=== PATIENT | male | born 1940 | race Two or more races ===

== ENCOUNTER 2023-11-10 19:07 | Emergency (ER) | payer OTHER ==
[~2023-11-10] VITALS: Ht 177.8 cm; Wt 95.4 kg
[~2023-11-10 19:07] MED LIST: APIX2.5T PO; ATOR40TA52 PO; CARV25TA55 PO; ESCI1TAB36 PO; FURO40TA4 PO; LEVO100T8 PO; OMEP-448 PO; SILV1CRE98 TOP
[2023-11-10 20:00] VITALS: PULSE 88; RESP 16; O2SAT 99
[2023-11-10 20:10] VITALS: BP 103/48; RESP 12; TEMP 98.5; O2SAT 99
[2023-11-10 20:30] VITALS: PULSE 76
[2023-11-10 20:38] LABS: Basophils # (auto) 0.1 10 ^3/uL (0-0.2); Basophils % (auto) 0.5 % (0.0-2.0); Eosinophils # (auto) 0 10 ^3/uL (0-0.8); Eosinophils % (auto) 0.4 % (0.0-7.0); Hematocrit 27.7 % (41.0-53.0); Hemoglobin 8.7 g/dL (13.5-17.5); Lymphocytes # (auto) 0.3 10 ^3/uL (0.4-5.4); Lymphocytes % (auto) 2.4 % (10.0-50.0); Mean Corpuscular Hemoglobin 23.7 pg (28.0-32.0); Mean Corpuscular Hgb Conc. 31.5 g/dL (32.0-36.0); Mean Corpuscular Volume 75.3 fL (80.0-100.0); Monocytes # (auto) 0.4 10 ^3/uL (0-1.3); Monocytes % (auto) 3.5 % (0.0-12.0); Neutrophils # (auto) 11.1 10 ^3/uL (1.6-8.6); Neutrophils % (auto) 93.2 % (37.0-80.0); Platelet Count (auto) 132 10^3/uL (140-450); Red Blood Cells 3.68 10^6/uL (4.5-5.90); Red Cell Distribution Width 19.2 % (11.8-14.3); White Blood Cell 11.9 10^3/uL (4.4-10.8)
[2023-11-10 20:41] LABS: INR 1.43 (0.9-1.15); Partial Thromboplastin Time 30.6 SEC (24.5-34.5); Prothrombin Time 14.8 sec (9.3-11.8)
[2023-11-10 20:43] LABS: Alanine Aminotransferase < 9 U/L (7-40); Alkaline Phosphatase 166 U/L (46-116); Anion Gap 6 (5-15); Aspartate Aminotransferase 15 U/L (13-40); BUN/Creatinine Ratio 15.5 (10.0-20.0); Bilirubin, Total 1.1 mg/dL (0.2-1.0); Blood Urea Nitrogen 29 mg/dL (9-23); Calcium 9.2 mg/dL (8.7-10.4); Carbon Dioxide 28 mmol/L (20-31); Chloride 104 mmol/L (98-107); Glucose 146 mg/dL (74-106); Magnesium 1.9 mg/dL (1.6-2.6); Potassium 3.4 mmol/L (3.5-5.1); Sodium 138 mmol/L (136-145); Total Protein 7.2 g/dL (5.7-8.2)
[2023-11-10 22:54] LABS: Urine Bacteria None Seen /hpf (None Seen)
[2023-11-10 23:00] LABS: Urine Blood TRACE /uL (Negative); Urine Clarity Clear (Clear); Urine Color Light-Yellow (Yellow); Urine Protein, UAD Negative (Negative); Urine Specific Gravity 1.013 (1.001-1.035); Urine Urobilinogen Normal (Negative); Urine WBC <1 /hpf (0 - 3); Urine pH 5.5 (5.0-9.0)
[2023-11-11] MEDS: SODIUM CHLORIDE 0.9% 1,000 ML IV ONE (00:07)
== END 2023-11-11 01:00 | disposition home or self-care (01) ==
LOC: EDBD 19:07 → ER 19:07
DX: D64.9 Anemia, unspecified (principal); N17.9 Acute kidney failure, unspecified; D72.829 Elevated white blood cell count, unspecified; I10 Essential (primary) hypertension; Z95.0 Presence of cardiac pacemaker
CPT/HCPCS: 36415; 71045; 80053; 81001; 83735; 83880; 84484; 85025; 85610; 85730; 93005; 96360; 99285; J7030

== ENCOUNTER 2023-11-18 05:42 | Inpatient (IN) | payer OTHER, MEDICAID ==
[2023-11-18] VITALS (9 sets, daily range): BP systolic 91–136; BP diastolic 56–64; PULSE 68–92; RESP 12–20; TEMP 98.3; O2SAT 10–100
[~2023-11-18] VITALS: Ht 173.5 cm; Wt 86.4 kg
[2023-11-18 08:01] LABS: Basophils # (auto) 0 10 ^3/uL (0-0.2); Basophils % (auto) 0.3 % (0.0-2.0); Eosinophils # (auto) 0.1 10 ^3/uL (0-0.8); Lymphocytes # (auto) 0.6 10 ^3/uL (0.4-5.4); Monocytes # (auto) 0.7 10 ^3/uL (0-1.3); Monocytes % (auto) 6.5 % (0.0-12.0); Nucleated Red Blood Cells % 0.1 %; White Blood Cell 11.1 10^3/uL (4.4-10.8)
[2023-11-18 08:04] LABS: Eosinophils % (auto) 0.7 % (0.0-7.0); Hematocrit 26.7 % (41.0-53.0); Hemoglobin 8.6 g/dL (13.5-17.5); Lymphocytes % (auto) 5.4 % (10.0-50.0); Mean Corpuscular Volume 74.9 fL (80.0-100.0); Neutrophils # (auto) 9.7 10 ^3/uL (1.6-8.6); Neutrophils % (auto) 87.1 % (37.0-80.0); Platelet Count (auto) 151 10^3/uL (140-450); Red Blood Cells 3.57 10^6/uL (4.5-5.90); Red Cell Distribution Width 19.3 % (11.8-14.3)
[2023-11-18 08:13] LABS: Alanine Aminotransferase 11 U/L (7-40); Albumin 3.9 g/dL (3.2-4.8); Alkaline Phosphatase 161 U/L (46-116); Anion Gap 6 (5-15); Aspartate Aminotransferase 18 U/L (13-40); BUN/Creatinine Ratio 16.4 (10.0-20.0); Blood Urea Nitrogen 38 mg/dL (9-23); Calcium 9.2 mg/dL (8.7-10.4); Carbon Dioxide 32 mmol/L (20-31); Chloride 102 mmol/L (98-107); Glucose 116 mg/dL (74-106); Potassium 3.2 mmol/L (3.5-5.1); Sodium 140 mmol/L (136-145)
[2023-11-18 08:14] LABS: Bilirubin, Total 1.1 mg/dL (0.2-1.0); Total Protein 7.1 g/dL (5.7-8.2)
[2023-11-18] MEDS: AZITHROMYCIN 500MG/ 250ML 250 ML IV ONE (09:45)
[2023-11-18 10:03] LABS: Urine Blood 1+ /uL (Negative); Urine Clarity Clear (Clear); Urine Color Yellow (Yellow); Urine Protein, UAD 1+ (Negative); Urine Specific Gravity 1.015 (1.001-1.035); Urine Urobilinogen Normal (Negative); Urine pH 6.5 (5.0-9.0)
[2023-11-18] MEDS: CEFEPIME 1GM/ 50ML 50 ML IV ONE (10:10)
[2023-11-18] MEDS: ALBUMIN 5% 250 ML IV ONE (10:10)
[2023-11-18] MEDS ORDERED: NITROGLYCERIN 0.4 MG SL TAB SL PRN (11:45)
[2023-11-18] MEDS ORDERED: ONDANSETRON HCL 4 MG/2 ML VIAL IV PRN (11:45)
[2023-11-18] MEDS ORDERED: MORPHINE SULFATE INJ 2 MG/ml SYRG IV PRN (11:45)
[2023-11-18 11:50] LABS: COVID19 ANTIGEN SOFIA FIA NEGATIVE (NEGATIVE); Rapid Influenza A Negative (Negative); Rapid Influenza B Negative (Negative)
[2023-11-18] MEDS: SODIUM CHLORIDE 0.9% 500 ML IV ONE (13:00)
[2023-11-18] MEDS: methylPREDNISolone SOD SUCC 125 MG/2 ML VL IV ONE (13:02)
[2023-11-18] MEDS: ALBUTEROL SULF 2.5 MG/0.5ML(0.5%) NEB SOLN NEB SCH (13:24)
[2023-11-18] MEDS: IPRATROPIUM BROM 0.5 MG/2.5ML INH SOL NEB SCH (13:26)
[2023-11-18] MEDS ORDERED: DEXTROSE (50%) 50ML SYRG IV PRN (14:45)
[2023-11-18 16:00] LABS: Sodium Urine < 10 mmol/L (40-220)
[2023-11-18 16:07] LABS: Creatinine, Urine 125.23 mg/dL (30.0-125.0)
[2023-11-18] MEDS: ACCU-CHEK COMFORT CURVE STRIP VI SCH (17:00)
[2023-11-18 17:02] LABS: Base Excess -3.9 mmol/L (-2.0-3.0)
[2023-11-18] MEDS: InsuLIN REG 1unit/0.01ml Soln (100units/ml) SC SCH (17:53)
[2023-11-18 18:10] LABS: Base Excess -0.6 mmol/L (-2.0-3.0)
[2023-11-18] MEDS: POTASSIUM CHL 20 Meq TABLET PO ONE (18:15)
[2023-11-18] MEDS ORDERED: VANCOMYCIN PER PHARMACY 0 MG IV SCH (18:30)
[2023-11-18] MEDS: ETOMIDATE (2MG/ML) 20ML VIAL IV ONE (18:49)
[2023-11-18 18:50] LABS: Protein, Urine 119.1 mg/dL (1-14)
[2023-11-18] MEDS: ROCURONIUM 10MG/ML 10ML VIAL IV ONE (18:50)
[2023-11-18] MEDS: PROPOFOL 100 ML IV ONE (18:50)
[2023-11-18] MEDS: PROPOFOL 100 ML IV SCH (18:51)
[2023-11-18 18:52] LABS: Creatinine, Urine 124.54 mg/dL (30.0-125.0); Urine Protein/Creatinine Ratio 0.96
[2023-11-18 18:53] LABS: Urine Bacteria FEW /hpf (None Seen); Urine Blood 1+ /uL (Negative); Urine Clarity Clear (Clear); Urine Color Yellow (Yellow); Urine Hyaline Cast FEW /lpf (0 - 2); Urine Mucus FEW (None Seen); Urine Protein, UAD 1+ (Negative); Urine Specific Gravity 1.015 (1.001-1.035); Urine Urobilinogen Normal (Negative); Urine WBC 1 /hpf (0 - 3); Urine pH 5.5 (5.0-9.0)
[2023-11-18 19:08] LABS: Magnesium 2.1 mg/dL (1.6-2.6)
[2023-11-18 19:10] LABS: Phosphorus 4.2 mg/dL (2.4-5.1)
[2023-11-18] MEDS: VANCOMYCIN 1.5GM/300ML 300 ML IV ONE (19:19)
[2023-11-18] MEDS: NOREPINEPHRINE 8 MG/250ML KIT 250 ML IV SCH (19:30)
[2023-11-18 20:20] LABS: Base Excess 1.2 mmol/L (-2.0-3.0)
[2023-11-18] MEDS: HEPARIN SODIUM (PORCINE) 5000 UNITS/ML 1ML VIAL SC SCH (21:50)
[2023-11-18] MEDS: CEFEPIME 1GM/ 50ML 50 ML IV SCH (22:00)
[2023-11-18] MEDS: FUROSEMIDE 40 MG/4 ML VIAL IV SCH (23:00)
[2023-11-19] VITALS (16 sets, daily range): BP systolic 96–144; BP diastolic 45–76; PULSE 71–94; RESP 18; O2SAT 96–100
[2023-11-19] MEDS: MIDAZOLAM DRIP 50 mg/50mL 50 ML IV SCH (01:34)
[2023-11-19 03:39] LABS: Basophils # (auto) 0 10 ^3/uL (0-0.2); Basophils % (auto) 0.1 % (0.0-2.0); Eosinophils # (auto) 0 10 ^3/uL (0-0.8); Lymphocytes # (auto) 0.4 10 ^3/uL (0.4-5.4); Monocytes # (auto) 0.2 10 ^3/uL (0-1.3); Platelet Count (auto) 149 10^3/uL (140-450)
[2023-11-19 03:41] LABS: Hematocrit 24.8 % (41.0-53.0); Hemoglobin 8.1 g/dL (13.5-17.5); Lymphocytes % (auto) 4.3 % (10.0-50.0); Mean Corpuscular Hemoglobin 24.3 pg (28.0-32.0); Mean Corpuscular Hgb Conc. 32.6 g/dL (32.0-36.0); Mean Corpuscular Volume 74.5 fL (80.0-100.0); Neutrophils # (auto) 7.9 10 ^3/uL (1.6-8.6); Neutrophils % (auto) 93.6 % (37.0-80.0); Nucleated Red Blood Cells % 0.2 %; Red Blood Cells 3.33 10^6/uL (4.5-5.90); Red Cell Distribution Width 19.1 % (11.8-14.3); White Blood Cell 8.5 10^3/uL (4.4-10.8)
[2023-11-19 03:58] LABS: Albumin 3.4 g/dL (3.2-4.8); Alkaline Phosphatase 132 U/L (46-116); Anion Gap 11 (5-15); Aspartate Aminotransferase 12 U/L (13-40); BUN/Creatinine Ratio 17.4 (10.0-20.0); Blood Urea Nitrogen 36 mg/dL (9-23); Calcium 8.8 mg/dL (8.7-10.4); Carbon Dioxide 26 mmol/L (20-31); Chloride 103 mmol/L (98-107); Glucose 155 mg/dL (74-106); Potassium 3.2 mmol/L (3.5-5.1); Sodium 140 mmol/L (136-145)
[2023-11-19 03:59] LABS: Total Protein 6.2 g/dL (5.7-8.2)
[2023-11-19 04:09] LABS: Alanine Aminotransferase 9 U/L (7-40)
[2023-11-19 06:47] LABS: Base Excess -2.2 mmol/L (-2.0-3.0)
[2023-11-19] MEDS: fentaNYL Drip 2500mCg/250mlNS 250 ML IV SCH (09:00)
[2023-11-19] MEDS: methylPREDNISolone SOD SUCC 125 MG/2 ML VL IV ONE (09:15)
[2023-11-19] MEDS: POTASSIUM CHLORIDE 40 MEQ in D5W 5% 1,000 ML IV ONE (09:15)
[2023-11-19] MEDS: VANCOMYCIN 750mg/150ml 150 ML IV ONE (13:00)
[2023-11-19] MEDS: SOD CHL 0.45% WITH 20MEQ KCL 1,000 ML IV SCH (16:45)
[2023-11-19] MEDS: POTASSIUM CHL 20MEQ/100ML 100 ML IV ONE (20:45)
[2023-11-20] VITALS (19 sets, daily range): BP systolic 100–144; BP diastolic 40–77; PULSE 66–86; RESP 18–21; TEMP 97.5–98.6; O2SAT 94–99
[2023-11-20 04:24] LABS: Basophils # (auto) 0 10 ^3/uL (0-0.2); Eosinophils # (auto) 0 10 ^3/uL (0-0.8); Hemoglobin 8.7 g/dL (13.5-17.5); Lymphocytes # (auto) 0.3 10 ^3/uL (0.4-5.4); Lymphocytes % (auto) 2.8 % (10.0-50.0); Mean Corpuscular Hemoglobin 24.2 pg (28.0-32.0); Mean Corpuscular Hgb Conc. 32.4 g/dL (32.0-36.0); Mean Corpuscular Volume 74.7 fL (80.0-100.0); Monocytes # (auto) 0.7 10 ^3/uL (0-1.3); Monocytes % (auto) 5.5 % (0.0-12.0); Neutrophils # (auto) 11.4 10 ^3/uL (1.6-8.6); Neutrophils % (auto) 91.7 % (37.0-80.0); Nucleated Red Blood Cells % 0.2 %; Platelet Count (auto) 219 10^3/uL (140-450); Red Blood Cells 3.61 10^6/uL (4.5-5.90); Red Cell Distribution Width 19.2 % (11.8-14.3); White Blood Cell 12.5 10^3/uL (4.4-10.8)
[2023-11-20 04:41] LABS: Anion Gap 9 (5-15); Carbon Dioxide 26 mmol/L (20-31); Chloride 105 mmol/L (98-107); Potassium 3.8 mmol/L (3.5-5.1); Sodium 140 mmol/L (136-145)
[2023-11-20 04:42] LABS: Calcium 8.8 mg/dL (8.7-10.4)
[2023-11-20 04:47] LABS: BUN/Creatinine Ratio 18.9 (10.0-20.0); Blood Urea Nitrogen 41 mg/dL (9-23); Glucose 231 mg/dL (74-106)
[2023-11-20 09:27] LABS: Base Excess 3.1 mmol/L (-2.0-3.0)
[2023-11-20] MEDS: VANCOMYCIN 750mg/150ml 150 ML IV ONE (13:10)
[2023-11-21] VITALS (87 sets, daily range): BP systolic 87–152; BP diastolic 39–83; PULSE 71–99; RESP 9–33; TEMP 97.3–101.1; O2SAT 94–100
[2023-11-21 05:34] LABS: Chloride 107 mmol/L (98-107); Potassium 3.2 mmol/L (3.5-5.1)
[2023-11-21 05:35] LABS: Anion Gap 9 (5-15); Calcium 9.3 mg/dL (8.7-10.4); Carbon Dioxide 30 mmol/L (20-31)
[2023-11-21 05:36] LABS: Basophils # (auto) 0 10 ^3/uL (0-0.2); Eosinophils # (auto) 0.1 10 ^3/uL (0-0.8); Eosinophils % (auto) 0.6 % (0.0-7.0); Hematocrit 29.5 % (41.0-53.0); Hemoglobin 9.4 g/dL (13.5-17.5); Lymphocytes # (auto) 0.9 10 ^3/uL (0.4-5.4); Lymphocytes % (auto) 7.8 % (10.0-50.0); Mean Corpuscular Hemoglobin 23.9 pg (28.0-32.0); Mean Corpuscular Hgb Conc. 31.9 g/dL (32.0-36.0); Mean Corpuscular Volume 74.8 fL (80.0-100.0); Monocytes # (auto) 0.9 10 ^3/uL (0-1.3); Monocytes % (auto) 7.6 % (0.0-12.0); Neutrophils # (auto) 10.2 10 ^3/uL (1.6-8.6); Nucleated Red Blood Cells % 0.2 %; Platelet Count (auto) 209 10^3/uL (140-450); Red Blood Cells 3.95 10^6/uL (4.5-5.90); Red Cell Distribution Width 19.6 % (11.8-14.3); White Blood Cell 12.1 10^3/uL (4.4-10.8)
[2023-11-21 05:40] LABS: BUN/Creatinine Ratio 22.4 (10.0-20.0); Blood Urea Nitrogen 48 mg/dL (9-23); Glucose 135 mg/dL (74-106)
[2023-11-21 05:57] LABS: Sodium 146 mmol/L (136-145)
[2023-11-21 08:05] LABS: Base Excess 5.9 mmol/L (-2.0-3.0)
[2023-11-21] MEDS: POTASSIUM CHL 20MEQ/100ML 100 ML IV ONE (09:39)
[2023-11-21] MEDS: ACETAMINOPHEN 325 MG TAB PO PRN (17:53)
[2023-11-21] MEDS: HYDROcodone-ACET 5/325MG TAB PO PRN (20:29)
[2023-11-22] VITALS (113 sets, daily range): BP systolic 88–155; BP diastolic 42–85; PULSE 69–103; RESP 8–39; TEMP 96.4–99.5; O2SAT 93–100
[2023-11-22 05:08] LABS: Basophils # (auto) 0 10 ^3/uL (0-0.2); Eosinophils # (auto) 0.1 10 ^3/uL (0-0.8); Monocytes # (auto) 0.7 10 ^3/uL (0-1.3)
[2023-11-22 05:10] LABS: Basophils % (auto) 0.1 % (0.0-2.0); Eosinophils % (auto) 1.2 % (0.0-7.0); Hematocrit 31.5 % (41.0-53.0); Lymphocytes # (auto) 1.4 10 ^3/uL (0.4-5.4); Lymphocytes % (auto) 11.6 % (10.0-50.0); Mean Corpuscular Hemoglobin 23.8 pg (28.0-32.0); Mean Corpuscular Hgb Conc. 31.8 g/dL (32.0-36.0); Mean Corpuscular Volume 74.9 fL (80.0-100.0); Monocytes % (auto) 5.7 % (0.0-12.0); Neutrophils # (auto) 9.9 10 ^3/uL (1.6-8.6); Neutrophils % (auto) 81.4 % (37.0-80.0); Nucleated Red Blood Cells % 0.1 %; Platelet Count (auto) 212 10^3/uL (140-450); Red Cell Distribution Width 19.4 % (11.8-14.3); White Blood Cell 12.1 10^3/uL (4.4-10.8)
[2023-11-22 05:29] LABS: Anion Gap 8 (5-15); Calcium 9.2 mg/dL (8.7-10.4); Carbon Dioxide 32 mmol/L (20-31); Chloride 109 mmol/L (98-107); Potassium 3.1 mmol/L (3.5-5.1); Sodium 149 mmol/L (136-145)
[2023-11-22 05:35] LABS: BUN/Creatinine Ratio 25.9 (10.0-20.0); Blood Urea Nitrogen 52 mg/dL (9-23); Glucose 163 mg/dL (74-106)
[2023-11-22] MEDS: POTASSIUM CHL 20MEQ/100ML 100 ML IV SCH (06:21)
[2023-11-22 08:59] LABS: Base Excess 3.9 mmol/L (-2.0-3.0)
[2023-11-22] MEDS: FUROSEMIDE 40 MG/4 ML VIAL IV SCH (09:55)
[2023-11-22 14:06] LABS: Base Excess 5.1 mmol/L (-2.0-3.0)
[2023-11-22] MEDS ORDERED: EPINEPHrine HCL 0.5 ML NEB NEB ONE (15:15)
[2023-11-22] MEDS ORDERED: EPINEPHrine HCL 0.5 ML NEB ONE (15:16)
[2023-11-22 16:21] LABS: Base Excess 5.3 mmol/L (-2.0-3.0)
[2023-11-22] MEDS: VANCOMYCIN 500 MG in D5W 5% 100 ML IV SCH (18:52)
[2023-11-23] VITALS (96 sets, daily range): BP systolic 77–159; BP diastolic 37–139; PULSE 71–100; RESP 11–31; TEMP 97.2–98; O2SAT 84–100
[2023-11-23 04:56] LABS: Nucleated Red Blood Cells % 0.1 %
[2023-11-23 04:58] LABS: Basophils # (auto) 0 10 ^3/uL (0-0.2); Basophils % (auto) 0.5 % (0.0-2.0); Eosinophils # (auto) 0.3 10 ^3/uL (0-0.8); Eosinophils % (auto) 2.8 % (0.0-7.0); Hematocrit 32.1 % (41.0-53.0); Hemoglobin 10.1 g/dL (13.5-17.5); Lymphocytes % (auto) 10.6 % (10.0-50.0); Mean Corpuscular Hemoglobin 23.7 pg (28.0-32.0); Mean Corpuscular Hgb Conc. 31.5 g/dL (32.0-36.0); Mean Corpuscular Volume 75.4 fL (80.0-100.0); Monocytes # (auto) 0.6 10 ^3/uL (0-1.3); Monocytes % (auto) 5.9 % (0.0-12.0); Neutrophils # (auto) 7.5 10 ^3/uL (1.6-8.6); Neutrophils % (auto) 80.2 % (37.0-80.0); Platelet Count (auto) 229 10^3/uL (140-450); Red Blood Cells 4.26 10^6/uL (4.5-5.90); Red Cell Distribution Width 19.6 % (11.8-14.3); White Blood Cell 9.3 10^3/uL (4.4-10.8)
[2023-11-23 05:05] LABS: Chloride 111 mmol/L (98-107); Potassium 3.8 mmol/L (3.5-5.1); Sodium 152 mmol/L (136-145)
[2023-11-23 05:06] LABS: Anion Gap 7 (5-15); Calcium 9.5 mg/dL (8.7-10.4); Carbon Dioxide 34 mmol/L (20-31)
[2023-11-23 05:11] LABS: BUN/Creatinine Ratio 24.7 (10.0-20.0); Blood Urea Nitrogen 45 mg/dL (9-23); Glucose 142 mg/dL (74-106)
[2023-11-23] MEDS: FUROSEMIDE 40 MG/4 ML VIAL IV PRN (11:42)
[2023-11-23] MEDS: APIXABAN 2.5 MG TAB PO SCH (11:43)
[2023-11-23] MEDS: VANCOMYCIN 500 MG in D5W 5% 100 ML IV SCH (17:00)
[2023-11-24] VITALS (33 sets, daily range): BP systolic 103–140; BP diastolic 52–75; PULSE 67–96; RESP 14–26; TEMP 97.4–98.2; O2SAT 93–100
[2023-11-24 05:40] LABS: Basophils # (auto) 0 10 ^3/uL (0-0.2); Hemoglobin 9.6 g/dL (13.5-17.5); Lymphocytes # (auto) 1.2 10 ^3/uL (0.4-5.4); Monocytes # (auto) 0.6 10 ^3/uL (0-1.3); Monocytes % (auto) 8.3 % (0.0-12.0); Neutrophils # (auto) 5.4 10 ^3/uL (1.6-8.6)
[2023-11-24 05:45] LABS: Basophils % (auto) 0.5 % (0.0-2.0); Eosinophils # (auto) 0.3 10 ^3/uL (0-0.8); Eosinophils % (auto) 4.5 % (0.0-7.0); Hematocrit 30.2 % (41.0-53.0); Lymphocytes % (auto) 15.3 % (10.0-50.0); Mean Corpuscular Hemoglobin 24.4 pg (28.0-32.0); Mean Corpuscular Hgb Conc. 31.9 g/dL (32.0-36.0); Mean Corpuscular Volume 76.4 fL (80.0-100.0); Neutrophils % (auto) 71.4 % (37.0-80.0); Nucleated Red Blood Cells % 0.1 %; Platelet Count (auto) 223 10^3/uL (140-450); Red Blood Cells 3.96 10^6/uL (4.5-5.90); Red Cell Distribution Width 19.6 % (11.8-14.3); White Blood Cell 7.6 10^3/uL (4.4-10.8)
[2023-11-24 05:50] LABS: Chloride 107 mmol/L (98-107); Potassium 3.7 mmol/L (3.5-5.1)
[2023-11-24 05:51] LABS: Anion Gap 5 (5-15); Calcium 9.2 mg/dL (8.7-10.4); Carbon Dioxide 34 mmol/L (20-31)
[2023-11-24 05:56] LABS: BUN/Creatinine Ratio 24.6 (10.0-20.0); Blood Urea Nitrogen 48 mg/dL (9-23); Glucose 94 mg/dL (74-106)
[2023-11-24 06:02] LABS: Sodium 146 mmol/L (136-145)
[2023-11-24 06:38] LABS: Large Platelets FEW; Ovalocytes MODE; Platelet Estimate Adequa
[2023-11-24] MEDS ORDERED: LEVO500T91 PO (07:44)
[2023-11-24] MEDS: FUROSEMIDE 20 MG/2 ML VIAL IV SCH (10:10)
== END 2023-11-24 18:00 | DRG 871 ==
LOC: EDBD 05:42 → ER 05:42 → TELE 11:36 → UNDOADMIN 11:36 → TELE 18:55 → ICU CENTRL 11-20 16:50 → DOU IN ICU 11-23 19:43
PROVIDERS: ADMIT Student in an Organized Health Care Education/Training Program; ATTEND Student in an Organized Health Care Education/Training Program
PROC: 06HM33Z Insertion of Infusion Device into Right Femoral Vein, Percutaneous Approach (ICD-10-PCS; principal; 2023-11-18)
PROC: 0BH17EZ Insertion of Endotracheal Airway into Trachea, Via Natural or Artificial Opening (ICD-10-PCS; 2023-11-18)
PROC: 5A1945Z Respiratory Ventilation, 24-96 Consecutive Hours (ICD-10-PCS; 2023-11-18)
PROC: 5A09357 Assistance with Respiratory Ventilation, Less than 24 Consecutive Hours, Continuous Positive Airway Pressure (ICD-10-PCS; 2023-11-18)
PROC: 0B9D8ZX Drainage of Right Middle Lung Lobe, Via Natural or Artificial Opening Endoscopic, Diagnostic (ICD-10-PCS; 2023-11-19)
PROC: 0BC78ZZ Extirpation of Matter from Left Main Bronchus, Via Natural or Artificial Opening Endoscopic (ICD-10-PCS; 2023-11-19)
PROC: 0BC38ZZ Extirpation of Matter from Right Main Bronchus, Via Natural or Artificial Opening Endoscopic (ICD-10-PCS; 2023-11-19)
PROC: 5A09357 Assistance with Respiratory Ventilation, Less than 24 Consecutive Hours, Continuous Positive Airway Pressure (ICD-10-PCS; 2023-11-22)
DX: A41.9 Sepsis, unspecified organism (principal); J18.9 Pneumonia, unspecified organism; J96.21 Acute and chronic respiratory failure with hypoxia; J96.22 Acute and chronic respiratory failure with hypercapnia; R65.21 Severe sepsis with septic shock; N17.9 Acute kidney failure, unspecified; I13.0 Hypertensive heart and chronic kidney disease with heart failure and stage 1 through stage 4 chronic kidney disease, or unspecified chronic kidney disease; R04.2 Hemoptysis; E87.0 Hyperosmolality and hypernatremia; E87.4 Mixed disorder of acid-base balance; I50.22 Chronic systolic (congestive) heart failure; E11.22 Type 2 diabetes mellitus with diabetic chronic kidney disease; E87.6 Hypokalemia; N26.1 Atrophy of kidney (terminal); N28.1 Cyst of kidney, acquired; D64.9 Anemia, unspecified; I27.20 Pulmonary hypertension, unspecified; I08.3 Combined rheumatic disorders of mitral, aortic and tricuspid valves; I48.91 Unspecified atrial fibrillation; N18.32 Chronic kidney disease, stage 3b; S00.81XA Abrasion of other part of head, initial encounter; Z86.73 Personal history of transient ischemic attack (TIA), and cerebral infarction without residual deficits; Z79.84 Long term (current) use of oral hypoglycemic drugs; Z95.0 Presence of cardiac pacemaker; W18.39XA Other fall on same level, initial encounter; Y93.89 Activity, other specified; Y92.89 Other specified places as the place of occurrence of the external cause; Y99.8 Other external cause status
CPT/HCPCS: 31500; 36415; 36556; 36600; 70450; 70486; 71045; 71250; 72125; 74176; 76775; 80048; 80053; 80202; 81001; 81003; 82570; 82805; 82962; 83036; 83735; 83930; 84100; 84156; 84300; 85025; 87040; 87070; 87081; 87205; 87426; 87804; 93005; 93306; 94002; 94003; 94640; 94660; 96361; 96365; 96366; 96368; 96375; 97163; 99291; G0378; J1815; J2704; J3480; J7060